=== PATIENT | male | born 1945 | race Caucasian/White ===

== ENCOUNTER 2017-08-29 09:51 | Inpatient (IN) ==
[2017-08-29] MEDS ORDERED: LACTATED RINGERS 500 ML IV ONE (13:20)
[2017-08-29] MEDS ORDERED: SODIUM CHLORIDE 0.9% 3,300 ML IV ONE (13:20)
[2017-08-29] MEDS ORDERED: ACETAMINOPHEN 325 MG TABLET PO PRN (13:22)
[2017-08-29] MEDS ORDERED: ONDANSETRON 4 MG/2 ML VIAL IV PRN (13:22)
[2017-08-29 13:51] LABS: Amorphous Crystals,Urine Occasional /HPF (Few); Apearance,Urine CLOUDY (Clear); Bacteria,Urine Occasional /HPF (Few); Bilirubin,Urine Negative (Negative); Blood, Urine Moderate mg/dL (Negative); Glucose,Urine (UA) Negative (Negative); Ketones,Urine Negative (Negative); Mucus,Urine Occasional /LPF (Occasional); Nitrite,Urine Negative (Negative); Protein,Urine 30 MG/DL; RBC,Urine 81 /HPF (0-4); Squamous Epithelial Cell,Urine Occasional /HPF (0-10); Urine Color Yellow (Yellow); Urine Specific Gravity 1.018 (1.001-1.035); WBC,Urine 14 /HPF (0-6)
[2017-08-29] MEDS ORDERED: GLUCAGON 1 MG VIAL IM PRN (13:53)
[2017-08-29] MEDS ORDERED: DEXTROSE 50% 25 GM/50 ML VIAL IV PRN (13:53)
[2017-08-29] MEDS ORDERED: INSULIN LISPRO 100 UNIT/ML SUBCUT SCH (14:00)
[2017-08-29] MEDS ORDERED: SODIUM CHLORIDE 0.9% 500 ML IV ONE (14:03)
[2017-08-29 14:17] LABS: Basophils % 0.1 % (0.0-0.8); Eosinophils # 0.3 10*3/uL (0.0-0.87); Eosinophils % 1.8 % (0.00-10.9); Hematocrit 34.7 VOL% (42.0-52.0); Hemoglobin 11.1 GM/DL (14.0-18.0); Immature Granulocytes % 3.1 %; Immature Granulocytes Absolute 0.53 #; Lymphocytes # 0.9 10*3/uL (1.4-4.0); Mean Corpuscular Hemoglobin 27 PG (27-34); Mean Corpuscular Volume 84.6 FL (87-102); Mean Platelet Volume 10.9 FL (9.6-12.0); Monocytes % 5.9 % (1.7-12.7); Neutrophils # 14.3 10*3/uL (1.4-7.4); Neutrophils % 84.1 % (38.7-73.9); Platelet Count 274 T/CUMM (130-400); Red Cell Distribution Width 15.9 % (9.3-17.3)
[2017-08-29] MEDS: MEROPENEM 1,000 MG in SYRINGE 1 EACH IV SCH (14:22)
[2017-08-29] MEDS: ENOXAPARIN 30 MG/0.3 ML SYRINGE SUBCUT SCH (14:23)
[2017-08-29 14:39] LABS: Lactic Acid 0.7 MMOL/L (0.4-2.0)
[2017-08-29 14:51] LABS: Albumin 1.9 G/DL (3.4-5.0); Bilirubin,Total 0.6 MG/DL (0.2-1.0); Calcium 7.7 MG/DL (8.5-10.1); Osmolality,Calculated 298.1 MOS/KG (273-304); Potassium 4.7 MMOL/L (3.5-5.1); Troponin I Only 0.031 NG/ML (0.00-0.045)
[2017-08-29] MEDS: LACTATED RINGERS 1,000 ML IV SCH ×3 (15:10→20:39)
[2017-08-29] MEDS ORDERED: LIDOCAINE 1% 20 ML VIAL MISC INJ ONE (16:09)
[2017-08-29] MEDS: INSULIN LISPRO 100 UNIT/ML SUBCUT SCH ×3 (16:26→23:55)
[2017-08-29] MEDS: OLANZapine 2.5 MG TABLET PO SCH (20:34)
[2017-08-29] MEDS: MORPHINE 2 MG/1 ML SYRINGE IV PRN (22:28)
[2017-08-30] MEDS: MEROPENEM 1,000 MG in SYRINGE 1 EACH IV SCH ×2 (01:40→13:02)
[2017-08-30] MEDS: MORPHINE 2 MG/1 ML SYRINGE IV PRN ×4 (03:05→23:55)
[2017-08-30] MEDS: LACTATED RINGERS 1,000 ML IV SCH ×5 (03:30→22:21)
[2017-08-30] MEDS: INSULIN LISPRO 100 UNIT/ML SUBCUT SCH ×5 (04:11→20:29)
[2017-08-30 05:37] LABS: Basophils % 0.3 % (0.0-0.8); Eosinophils # 0.4 10*3/uL (0.0-0.87); Eosinophils % 3.7 % (0.00-10.9); Hematocrit 33.8 VOL% (42.0-52.0); Hemoglobin 10.9 GM/DL (14.0-18.0); Immature Granulocytes % 4.4 %; Lymphocytes # 0.4 10*3/uL (1.4-4.0); Lymphocytes % 3.7 % (21.2-54.2); Mean Corpuscular HGB Conc 32.2 GM/DL (32-36); Mean Corpuscular Hemoglobin 27 PG (27-34); Mean Corpuscular Volume 84.3 FL (87-102); Monocytes # 1.1 10*3/uL (0.11-0.8); Monocytes % 9.4 % (1.7-12.7); Neutrophils % 78.5 % (38.7-73.9); Platelet Count 280 T/CUMM (130-400); Red Blood Count 4.01 MC/CUMM (3.8-5.5); Red Cell Distribution Width 16.1 % (9.3-17.3); White Blood Count 11.5 T/CUMM (4-12)
[2017-08-30 06:05] LABS: Albumin 1.8 G/DL (3.4-5.0); Bilirubin,Total 0.5 MG/DL (0.2-1.0); Calcium 8.3 MG/DL (8.5-10.1); Osmolality,Calculated 295.5 MOS/KG (273-304); Potassium 4.1 MMOL/L (3.5-5.1); Total Protein 5.1 G/DL (6.4-8.3)
[2017-08-30 06:12] LABS: Band Neutrophils 6 % (0-10); Eosinophils 5 % (0-10); Lymphocytes 7 % (20-55); Platelet Estimate Normal; Segmented Neutrophils 73 % (50-85); Total Cells Counted 100
[2017-08-30] MEDS ORDERED: LEVOTHYROXINE 100 MCG VIAL IV SCH (07:00)
[2017-08-30] MEDS ORDERED: LEVOTHYROXINE SODIUM 300 MCG PO SCH (08:00)
[2017-08-30] MEDS: PANTOPRAZOLE 40 MG VIAL IV SCH (08:20)
[2017-08-30] MEDS: CLOPIDOGREL 75 MG TABLET PO SCH (08:20)
[2017-08-30] MEDS: AMIODARONE 200 MG TABLET PO SCH ×2 (08:20→20:12)
[2017-08-30] MEDS: MEMANTINE 5 MG TABLET PO SCH ×2 (08:20→20:12)
[2017-08-30] MEDS: DUTASTERIDE 0.5 MG CAPSULE PO SCH (08:20)
[2017-08-30] MEDS: rOPINIRole 1 MG TABLET PO SCH (08:20)
[2017-08-30] MEDS ORDERED: PANTOPRAZOLE 40 MG TABLET PO SCH (09:00)
[2017-08-30] MEDS: ENOXAPARIN 30 MG/0.3 ML SYRINGE SUBCUT SCH (13:02)
[2017-08-30] MEDS: MEXILETINE 150 MG CAPSULE PO SCH ×2 (15:51→21:52)
[2017-08-30] MEDS ORDERED: AMIODARONE INJ 150 MG in DEXTROSE 5% 100 ML IV ONE (19:54)
[2017-08-30] MEDS: OLANZapine 2.5 MG TABLET PO SCH (20:16)
[2017-08-30 20:17] LABS: CKMB % 6.2 %; Troponin I Only 0.039 NG/ML (0.00-0.045)
[2017-08-30 20:19] LABS: Calcium 8.2 MG/DL (8.5-10.1); Osmolality,Calculated 289.5 MOS/KG (273-304); Potassium 4.1 MMOL/L (3.5-5.1)
[2017-08-30] MEDS ORDERED: AMIODARONE INJ 450 MG in DEXTROSE 5% 241 ML IV SCH (22:00)
[2017-08-31] MEDS: INSULIN LISPRO 100 UNIT/ML SUBCUT SCH ×7 (00:12→23:40)
[2017-08-31] MEDS: MEROPENEM 1,000 MG in SYRINGE 1 EACH IV SCH ×3 (02:20→21:48)
[2017-08-31] MEDS ORDERED: AMIODARONE INJ 450 MG in DEXTROSE 5% 241 ML IV SCH (04:00)
[2017-08-31] MEDS: LACTATED RINGERS 1,000 ML IV SCH ×2 (06:21→15:50)
[2017-08-31 06:24] LABS: Basophils % 0.2 % (0.0-0.8); Eosinophils # 0.4 10*3/uL (0.0-0.87); Eosinophils % 3.4 % (0.00-10.9); Hematocrit 35.2 VOL% (42.0-52.0); Hemoglobin 11.1 GM/DL (14.0-18.0); Immature Granulocytes % 4.6 %; Immature Granulocytes Absolute 0.48 #; Lymphocytes # 0.7 10*3/uL (1.4-4.0); Lymphocytes % 6.3 % (21.2-54.2); Mean Corpuscular HGB Conc 31.5 GM/DL (32-36); Mean Corpuscular Hemoglobin 27 PG (27-34); Mean Corpuscular Volume 85.2 FL (87-102); Mean Platelet Volume 11.3 FL (9.6-12.0); Monocytes # 1.2 10*3/uL (0.11-0.8); Monocytes % 11.4 % (1.7-12.7); Neutrophils # 7.7 10*3/uL (1.4-7.4); Neutrophils % 74.1 % (38.7-73.9); Platelet Count 288 T/CUMM (130-400); Red Blood Count 4.13 MC/CUMM (3.8-5.5); Red Cell Distribution Width 16.2 % (9.3-17.3); White Blood Count 10.3 T/CUMM (4-12)
[2017-08-31] MEDS: MEXILETINE 150 MG CAPSULE PO SCH ×3 (06:26→21:48)
[2017-08-31] MEDS: LEVOTHYROXINE 100 MCG TABLET PO SCH (06:26)
[2017-08-31] MEDS: MORPHINE 2 MG/1 ML SYRINGE IV PRN (06:30)
[2017-08-31 06:46] LABS: Osmolality,Calculated 288.8 MOS/KG (273-304); Potassium 4.5 MMOL/L (3.5-5.1)
[2017-08-31 06:50] LABS: Troponin I Only 0.074 NG/ML (0.00-0.045)
[2017-08-31] MEDS: rOPINIRole 1 MG TABLET PO SCH (08:26)
[2017-08-31] MEDS: AMIODARONE 200 MG TABLET PO SCH ×2 (08:26→21:47)
[2017-08-31] MEDS: CLOPIDOGREL 75 MG TABLET PO SCH (08:26)
[2017-08-31] MEDS: MEMANTINE 5 MG TABLET PO SCH ×2 (08:26→21:47)
[2017-08-31] MEDS: DUTASTERIDE 0.5 MG CAPSULE PO SCH (08:26)
[2017-08-31] MEDS: PANTOPRAZOLE 40 MG VIAL IV SCH (08:34)
[2017-08-31] MEDS ORDERED: TEMAZEPAM 15 MG CAPSULE PO PRN (10:34)
[2017-08-31] MEDS: ENOXAPARIN 40 MG/0.4 ML SYRINGE SUBCUT SCH (13:36)
[2017-08-31] MEDS: OLANZapine 2.5 MG TABLET PO SCH ×2 (21:48→23:41)
[2017-09-01] MEDS: LACTATED RINGERS 1,000 ML IV SCH ×3 (00:49→19:17)
[2017-09-01] MEDS: MORPHINE 2 MG/1 ML SYRINGE IV PRN ×2 (02:58→21:39)
[2017-09-01 04:32] LABS: Basophils # 0.1 10*3/uL (0.0-0.2); Basophils % 0.5 % (0.0-0.8); Eosinophils # 0.3 10*3/uL (0.0-0.87); Eosinophils % 2.8 % (0.00-10.9); Hematocrit 34.7 VOL% (42.0-52.0); Hemoglobin 10.9 GM/DL (14.0-18.0); Immature Granulocytes % 4.5 %; Immature Granulocytes Absolute 0.44 #; Lymphocytes # 0.6 10*3/uL (1.4-4.0); Lymphocytes % 5.6 % (21.2-54.2); Mean Corpuscular HGB Conc 31.4 GM/DL (32-36); Mean Corpuscular Hemoglobin 27 PG (27-34); Mean Corpuscular Volume 86.8 FL (87-102); Mean Platelet Volume 10.4 FL (9.6-12.0); Monocytes % 10.5 % (1.7-12.7); Neutrophils # 7.4 10*3/uL (1.4-7.4); Neutrophils % 76.1 % (38.7-73.9); Platelet Count 265 T/CUMM (130-400); White Blood Count 9.7 T/CUMM (4-12)
[2017-09-01] MEDS: INSULIN LISPRO 100 UNIT/ML SUBCUT SCH ×5 (04:39→19:37)
[2017-09-01 05:04] LABS: Calcium 7.9 MG/DL (8.5-10.1); Calcium 8.3 MG/DL (8.5-10.1); Osmolality,Calculated 288.4 MOS/KG (273-304); Osmolality,Calculated 289.4 MOS/KG (273-304); Potassium 4.3 MMOL/L (3.5-5.1); Potassium 4.4 MMOL/L (3.5-5.1)
[2017-09-01] MEDS: MEROPENEM 1,000 MG in SYRINGE 1 EACH IV SCH ×2 (05:20→13:25)
[2017-09-01] MEDS: MEXILETINE 150 MG CAPSULE PO SCH ×3 (05:25→21:43)
[2017-09-01] MEDS: LEVOTHYROXINE 100 MCG TABLET PO SCH (05:49)
[2017-09-01] MEDS ORDERED: FLUCONAZOLE 150 MG TABLET PO ONE (08:00)
[2017-09-01] MEDS: DUTASTERIDE 0.5 MG CAPSULE PO SCH (08:25)
[2017-09-01] MEDS: AMIODARONE 200 MG TABLET PO SCH ×2 (08:25→21:43)
[2017-09-01] MEDS: MEMANTINE 5 MG TABLET PO SCH ×2 (08:25→21:43)
[2017-09-01] MEDS: rOPINIRole 1 MG TABLET PO SCH (08:25)
[2017-09-01] MEDS: PANTOPRAZOLE 40 MG VIAL IV SCH (08:26)
[2017-09-01] MEDS: CLOPIDOGREL 75 MG TABLET PO SCH (08:32)
[2017-09-01] MEDS: ENOXAPARIN 40 MG/0.4 ML SYRINGE SUBCUT SCH (13:26)
[2017-09-01] MEDS ORDERED: BENZONATATE 100 MG CAPSULE PO PRN (15:32)
[2017-09-01] MEDS: PIPERACILLIN/TAZOBACTAM 3,375 MG in SODIUM CHLORIDE 0.9% 100 ML IV SCH (16:15)
[2017-09-01] MEDS: GENTAMICIN INJ 220 MG in SODIUM CHLORIDE 0.9% 100 ML IV SCH (16:34)
[2017-09-01] MEDS ORDERED: PROPOFOL 200 MG/20 ML VIAL IV ONE (21:24)
[2017-09-01] MEDS ORDERED: SEVOFLURANE 1 UNIT/15 MINUTE INH ONE (21:24)
[2017-09-01] MEDS ORDERED: ONDANSETRON 4 MG/2 ML VIAL ONE (21:24)
[2017-09-01] MEDS ORDERED: fentaNYL 100 MCG/2 ML VIAL ONE (21:24)
[2017-09-01] MEDS: OLANZapine 2.5 MG TABLET PO SCH (21:43)
[2017-09-01] MEDS: OXYMETAZOLINE 0.05% NASAL SPRAY 15 ML BOTTLE BOTH NARES SCH (21:47)
[2017-09-02] MEDS: PIPERACILLIN/TAZOBACTAM 3,375 MG in SODIUM CHLORIDE 0.9% 100 ML IV SCH ×2 (00:37→09:36)
[2017-09-02] MEDS: INSULIN LISPRO 100 UNIT/ML SUBCUT SCH ×4 (00:37→12:22)
[2017-09-02] MEDS: LACTATED RINGERS 1,000 ML IV SCH ×3 (00:54→09:34)
[2017-09-02] MEDS: MORPHINE 2 MG/1 ML SYRINGE IV PRN (03:12)
[2017-09-02] MEDS: GENTAMICIN INJ 220 MG in SODIUM CHLORIDE 0.9% 100 ML IV SCH (03:12)
[2017-09-02 04:51] LABS: Basophils # 0.1 10*3/uL (0.0-0.2); Basophils % 0.4 % (0.0-0.8); Eosinophils # 0.2 10*3/uL (0.0-0.87); Eosinophils % 1.4 % (0.00-10.9); Hematocrit 35.4 VOL% (42.0-52.0); Hemoglobin 10.9 GM/DL (14.0-18.0); Immature Granulocytes % 4.1 %; Immature Granulocytes Absolute 0.57 #; Lymphocytes # 0.5 10*3/uL (1.4-4.0); Lymphocytes % 3.9 % (21.2-54.2); Mean Corpuscular HGB Conc 30.8 GM/DL (32-36); Mean Corpuscular Hemoglobin 27 PG (27-34); Mean Corpuscular Volume 87.8 FL (87-102); Mean Platelet Volume 10.9 FL (9.6-12.0); Monocytes # 1.3 10*3/uL (0.11-0.8); Monocytes % 9.1 % (1.7-12.7); Neutrophils # 11.2 10*3/uL (1.4-7.4); Neutrophils % 81.1 % (38.7-73.9); Platelet Count 290 T/CUMM (130-400); Red Blood Count 4.03 MC/CUMM (3.8-5.5); Red Cell Distribution Width 15.9 % (9.3-17.3); White Blood Count 13.8 T/CUMM (4-12)
[2017-09-02 05:11] LABS: Eosinophils 1 % (0-10); Hypochromasia 1+; Lymphocytes 3 % (20-55); Microcytosis Slight; Ovalocytes Slight; Segmented Neutrophils 88 % (50-85); Total Cells Counted 100
[2017-09-02] MEDS ORDERED: LORazepam 2 MG/1 ML VIAL IV ONE ×3 (05:11→13:15)
[2017-09-02 05:20] LABS: Calcium 7.9 MG/DL (8.5-10.1); Osmolality,Calculated 287.3 MOS/KG (273-304); Potassium 4.2 MMOL/L (3.5-5.1)
[2017-09-02 05:23] LABS: Osmolality,Calculated 285.4 MOS/KG (273-304); Potassium 4.2 MMOL/L (3.5-5.1)
[2017-09-02] MEDS: LEVOTHYROXINE 100 MCG TABLET PO SCH (05:31)
[2017-09-02] MEDS: MEXILETINE 150 MG CAPSULE PO SCH ×2 (05:31→13:36)
[2017-09-02] MEDS: PANTOPRAZOLE 40 MG VIAL IV SCH (09:15)
[2017-09-02] MEDS: OXYMETAZOLINE 0.05% NASAL SPRAY 15 ML BOTTLE BOTH NARES SCH (09:36)
[2017-09-02] MEDS: rOPINIRole 1 MG TABLET PO SCH (09:37)
[2017-09-02] MEDS: CLOPIDOGREL 75 MG TABLET PO SCH (09:37)
[2017-09-02] MEDS: DUTASTERIDE 0.5 MG CAPSULE PO SCH (09:37)
[2017-09-02] MEDS: AMIODARONE 200 MG TABLET PO SCH (09:38)
[2017-09-02] MEDS: MEMANTINE 5 MG TABLET PO SCH (09:38)
[2017-09-02] MEDS: ENOXAPARIN 40 MG/0.4 ML SYRINGE SUBCUT SCH (13:35)
[2017-09-02 14:56] VITALS: BP 111/75
[2017-09-03] MEDS ORDERED: VALSARTAN 80 MG TABLET PO SCH (09:00)
== END 2017-09-02 14:52 | DRG 872 ==
LOC: SUATTDRO 12:55 → N.CC 12:55
PROVIDERS: ADMIT Internal Medicine; ATTEND Internal Medicine

== ENCOUNTER 2018-01-09 19:34 | Inpatient (IN) ==
[2018-01-13 12:52] VITALS: BP 109/63
== END 2018-01-13 13:37 | DRG 291 ==
LOC: N.ED 19:34 → SUATTDRO 22:27 → N.EDINP 22:27 → N.5E 23:56
PROVIDERS: ADMIT Internal Medicine; ATTEND Internal Medicine